=== PATIENT | female | born 1990 | race Caucasian/White ===

== ENCOUNTER 2021-08-29 06:01 | Day surgery (SDC) | payer OTHER ==
[~2021-08-29] VITALS: Ht 170.2 cm; Wt 57.2 kg
[~2021-08-29 06:01] MED LIST: ACET-2247 PO; AMIT-92 PO; DOCU-350 PO; FERR-89 PO; GABA-1181 PO; LORA-999 PO; NALO12.52 PO; QUET25TA PO; SENN-237 PO; SODIUM CHLORIDE 0.9% 1,000 ML ONE; THIA100V4 IM
[2021-08-29] MEDS ORDERED: LIDOCAINE 2% 30 ML JELLY TP ONE (06:02)
[2021-08-29] MEDS ORDERED: ALBUTEROL SULFATE 2.5 MG/0.5 ML NEB SOLUTION NEB ONE (06:02)
[2021-08-29] MEDS ORDERED: BENZOCAINE 20% 50 MCG/SPRAY 57 GM TP ONE (06:02)
[2021-08-29] MEDS ORDERED: LIDOCAINE 4% 50 ML SOLUTION TP ONE (06:02)
[2021-08-29] MEDS ORDERED: SODIUM CHLORIDE 0.9% 1,000 ML IV ONE (06:30)
[2021-08-29] MEDS ORDERED: MIDAZOLAM HCL 5 MG/ML VIAL ONE (06:48)
[2021-08-29] MEDS ORDERED: FentaNYL CITRATE PF 100 MCG/2 ML VIAL ONE (06:48)
[2021-08-29 06:56] LABS: GLUCOMETER DEV NAME(LOC) SDS.; GLUCOSE,POINT OF CARE 163 MG/DL (70-110)
[2021-08-29] MEDS ORDERED: HYDROCORTISONE SOD SUCC 100 MG/2 ML VIAL ONE (09:10)
[2021-08-29] MEDS ORDERED: MethylPREDNISolone SOD SUCC 125 MG/2 ML VIAL IVP ONE (09:15)
[2021-08-29] MEDS ORDERED: OXYGEN THERAPY IH SCH (20:00)
== END 2021-08-29 11:18 ==
LOC: SURGERY 06:01
PROVIDERS: ATTEND Internal Medicine Critical Care Medicine
DX: R06.2 Wheezing (principal); J38.4 Edema of larynx; B37.0 Candidal stomatitis; L92.8 Other granulomatous disorders of the skin and subcutaneous tissue; E11.9 Type 2 diabetes mellitus without complications; I10 Essential (primary) hypertension; Z79.01 Long term (current) use of anticoagulants; R10.2 Pelvic and perineal pain; Z98.890 Other specified postprocedural states; Z88.8 Allergy status to other drugs, medicaments and biological substances
CPT/HCPCS: 31623; 31624; 36415; 71045; 82962; 84702; 87015; 87070; 87101; 87206; 87220; J1720; J2250; J3010; J7030; 88112; 88312; J7613; Z7610